=== PATIENT | male | born 1930 | race Caucasian/White ===

== ENCOUNTER 2017-09-14 14:50 | Emergency (ER) | payer MEDICARE ==
[~2017-09-14] VITALS: Ht 172.7 cm; Wt 77.0 kg
[2017-09-14] MEDS ORDERED: HEART (15:37)
[2017-09-14] MEDS ORDERED: VITAMINS (15:37)
[2017-09-14] MEDS ORDERED: BP MED (15:37)
[2017-09-14] MEDS ORDERED: DIURETIC (15:37)
[2017-09-14] MEDS ORDERED: LIDOCAINE 4% TOPICAL SOLUTION 50 ML TP ONE (16:00)
[2017-09-14] MEDS ORDERED: ALBUTEROL SULFATE 2.5MG/0.5ML NPPB ONE (17:00)
[2017-09-14] MEDS ORDERED: ALBUTEROL SULFATE 2.5 MG/3 ML ONE (17:11)
[2017-09-14 17:46] VITALS: BP 167/73
== END 2017-09-14 18:08 | disposition home or self-care (01) ==
LOC: ED 17:35
DX: T17.508A Unspecified foreign body in bronchus causing other injury, initial encounter (principal); X58.XXXA Exposure to other specified factors, initial encounter; Y93.89 Activity, other specified; Y99.8 Other external cause status; Y92.89 Other specified places as the place of occurrence of the external cause
CPT/HCPCS: 71046; 93005; 94640; 99284; J7611

== ENCOUNTER 2018-06-21 00:57 | Emergency (ER) | payer MEDICARE ==
[~2018-06-21] VITALS: Ht 167.6 cm; Wt 72.7 kg
[~2018-06-21 00:57] MED LIST: BP MED; DIURETIC; HEART; VITAMINS
[2018-06-21 00:59] VITALS: BP 166/93
--- NOTE | 2018-06-21 01:45 | NUR ---
PT TO XRAY WITH TECH AT THIS TIME.
[2018-06-21] MEDS ORDERED: ACETAMINOPHEN 500 MG TABLET ONE (01:58)
[2018-06-21] MEDS ORDERED: ACETAMINOPHEN 500 MG TABLET PO ONE (02:00)
== END 2018-06-21 03:20 | disposition home or self-care (01) ==
LOC: ED 02:58
DX: M25.512 Pain in left shoulder (principal); M54.2 Cervicalgia; I10 Essential (primary) hypertension
CPT/HCPCS: 93005; 99283